=== PATIENT | male | born 1990 | race Caucasian/White ===

== ENCOUNTER 2018-12-28 16:51 | Emergency (ER) | payer OTHER ==
[~2018-12-28] VITALS: Ht 175.3 cm; Wt 81.7 kg
[2018-12-28] MEDS ORDERED: NOHOMEMEDICATIONS (17:19)
[2018-12-28 18:15] LABS: ABSOLUTE EOSINOPHILS 0.1 thou/uL (0.0-0.7); ABSOLUTE LYMPHOCYTES 1.2 thou/uL (0.8-5.3); ABSOLUTE MONOCYTES 0.9 thou/uL (0.0-1.2); ABSOLUTE NEUTROPHILS 10.3 thou/uL (1.6-8.1); BASOPHILS 0.3 %; EOSINOPHILS 0.8 %; HEMATOCRIT 50.3 % (42.0-52.0); HEMOGLOBIN 17.2 gm/dL (14.0-18.0); LYMPHOCYTES 9.9 %; MCH 29.7 pg (26.0-34.0); MCHC 34.3 g/dL (28.0-37.0); MCV 86.5 fL (80.0-100.0); MONOCYTES 6.9 %; MPV 9.1 fl. (7.2-11.1); NUCLEATED RBCS 0 /100WBC; PLATELET COUNT* 195 thou/uL (150-400); POLYS 82.1 %; RBC 5.81 mil/uL (4.50-6.00); RDW-CV 12.7 % (10.5-14.5); WBC 12.6 thou/uL (4.0-11.0)
[2018-12-28 18:16] LABS: URINE BILIRUBIN NEGATIVE (Negative); URINE BLOOD NEGATIVE (Negative); URINE CLARITY CLEAR; URINE COLOR YELLOW; URINE GLUCOSE-RANDOM NEGATIVE (Negative); URINE KETONES 1+ (Negative); URINE LEUKOCYTES-REFLEX NEGATIVE (Negative); URINE NITRITE-REFLEX NEGATIVE (Negative); URINE PROTEIN NEGATIVE (Negative); URINE SPECIFIC GRAVITY 1.015 (1.005-1.030)
[2018-12-28 18:23] LABS: CALCIUM 9.6 mg/dL (8.5-10.1); CREATININE 1.1 mg/dL (0.6-1.3); POTASSIUM 3.7 mmol/L (3.5-5.1)
[2018-12-28 18:23] LABS: AMP/METHAMP Negative (Negative); BARBITURATES Negative (Negative); BENZODIAZEPINES Negative (Negative); COCAINE Negative (Negative); METHADONE Negative (Negative); OPIATES Negative (Negative); PCP Negative (Negative); THC Negative (Negative)
[2018-12-28 18:27] LABS: TOTAL BILIRUBIN 1.3 mg/dL (<0.1-1.0); TOTAL PROTEIN 7.5 g/dL (6.4-8.2)
[2018-12-28] MEDS ORDERED: ACETAMINOPHEN-1 EAC1 PO (19:30)
[2018-12-28] MEDS ORDERED: NAPROSYN500 MG PO (19:31)
[2018-12-28] MEDS ORDERED: PROAIR HFA8.5 GM INH (19:38)
[2018-12-28] MEDS ORDERED: MEDROLDOSEPACK PO (19:38)
[2018-12-28 19:44] VITALS: BP 146/96
--- NOTE | 2018-12-29 17:02 | EKG ---
[place] [address] ELECTROCARDIOGRAM REPORT Name: ARACELI VELA Room: 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
== END 2018-12-28 19:45 | disposition home or self-care (01) ==
LOC: M.ERS 16:51
PROVIDERS: Physician Assistant
DX: R07.89 Other chest pain (principal); R06.00 Dyspnea, unspecified; R16.1 Splenomegaly, not elsewhere classified

== ENCOUNTER 2018-12-30 16:33 | Emergency (ER) | payer OTHER ==
[~2018-12-30] VITALS: Ht 177.8 cm; Wt 101.2 kg
[~2018-12-30 16:33] MED LIST: ACETAMINOPHEN-1 EAC1 PO; MEDROLDOSEPACK PO; NAPROSYN500 MG PO; NOHOMEMEDICATIONS; PROAIR HFA8.5 GM INH
[2018-12-30 17:11] LABS: ABSOLUTE LYMPHOCYTES 0.9 thou/uL (0.8-5.3); ABSOLUTE MONOCYTES 0.7 thou/uL (0.0-1.2); ABSOLUTE NEUTROPHILS 9.5 thou/uL (1.6-8.1); BASOPHILS 0.4 %; EOSINOPHILS 0.3 %; HEMATOCRIT 48.8 % (42.0-52.0); HEMOGLOBIN 16.9 gm/dL (14.0-18.0); LYMPHOCYTES 8.1 %; MCH 29.8 pg (26.0-34.0); MCHC 34.7 g/dL (28.0-37.0); MCV 85.7 fL (80.0-100.0); MONOCYTES 6.7 %; MPV 8.8 fl. (7.2-11.1); NUCLEATED RBCS 0 /100WBC; PLATELET COUNT* 193 thou/uL (150-400); POLYS 84.5 %; RBC 5.69 mil/uL (4.50-6.00); RDW-CV 13.1 % (10.5-14.5); WBC 11.2 thou/uL (4.0-11.0)
[2018-12-30 17:21] LABS: ANION GAP 15 mmol/L (7-16); BUN 18 mg/dL (7-18); CALCIUM 9.3 mg/dL (8.5-10.1); CHLORIDE 101 mmol/L (98-107); CO2 22 mmol/L (21-32); GLUCOSE 127 mg/dL (70-99); POTASSIUM 3.7 mmol/L (3.5-5.1); SODIUM 138 mmol/L (136-145)
[2018-12-30 17:31] LABS: ALBUMIN 4.4 g/dL (3.4-5.0); ALKALINE PHOSPHATASE 86 U/L (46-116); LIPASE 40 U/L (73-393); NT-PRO BRAIN NAT PEPTIDE 224 pg/mL (<300); SGOT 12 U/L (15-37); SGPT 26 U/L (30-65); TOTAL BILIRUBIN 1.6 mg/dL (<0.1-1.0); TOTAL PROTEIN 7.5 g/dL (6.4-8.2); TROPONIN-I LEVEL <0.06 ng/mL (<0.06)
[2018-12-30 18:15] LABS: URINE BLOOD NEGATIVE (Negative); URINE CLARITY CLEAR; URINE COLOR YELLOW; URINE GLUCOSE-RANDOM NEGATIVE (Negative); URINE LEUKOCYTES-REFLEX NEGATIVE (Negative); URINE NITRITE-REFLEX NEGATIVE (Negative); URINE PROTEIN 1+ (Negative); URINE SPECIFIC GRAVITY 1.015 (1.005-1.030)
[2018-12-30 18:22] LABS: ICTOTEST (BILI CONFIRMATORY) Negative (Negative); URINE BILIRUBIN 1+ (Negative); URINE KETONES 3+ (Negative)
[2018-12-30] MEDS ORDERED: HYDROXYZINE HCL25 M2 PO (18:33)
[2018-12-30 18:52] VITALS: BP 150/102
--- NOTE | 2018-12-31 12:34 | EKG ---
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
== END 2018-12-30 18:52 | disposition home or self-care (01) ==
LOC: M.ERS 16:33
PROVIDERS: Nurse Practitioner Family
DX: F41.9 Anxiety disorder, unspecified (principal); R06.00 Dyspnea, unspecified; Z87.19 Personal history of other diseases of the digestive system

== ENCOUNTER 2019-05-20 20:51 | Emergency (ER) | payer OTHER ==
[~2019-05-20] VITALS: Ht 177.8 cm; Wt 95.3 kg
[~2019-05-20 20:51] MED LIST changes: +HYDROXYZINE HCL25 M2 PO
[2019-05-20 21:02] VITALS: BP 143/92
[2019-05-21] MEDS ORDERED: CENTANY30 GM TOP (15:08)
[2019-05-21] MEDS ORDERED: DOXYCYCLINE 10100 MG PO (15:08)
== END 2019-05-20 21:36 | disposition home or self-care (01) ==
LOC: M.ERS 20:51
DX: B34.9 Viral infection, unspecified (principal); R21 Rash and other nonspecific skin eruption; Z88.0 Allergy status to penicillin

== ENCOUNTER 2019-05-21 14:30 | Emergency (ER) | payer OTHER ==
[~2019-05-21] VITALS: Ht 177.8 cm; Wt 95.3 kg
[2019-05-21] MEDS ORDERED: CENTANY30 GM TOP (15:08)
[2019-05-21] MEDS ORDERED: DOXYCYCLINE 10100 MG PO (15:08)
[2019-05-21 15:21] VITALS: BP 137/93
[2019-05-22] MEDS ORDERED: DOXYCYCLINE 10100 MG PO (18:27)
== END 2019-05-21 15:23 | disposition home or self-care (01) ==
LOC: M.ERS 14:30
DX: R21 Rash and other nonspecific skin eruption (principal); Z88.0 Allergy status to penicillin

== ENCOUNTER 2019-05-22 17:04 | Emergency (ER) | payer OTHER ==
[~2019-05-22] VITALS: Ht 177.8 cm; Wt 93.4 kg
[~2019-05-22 17:04] MED LIST changes: +CENTANY30 GM TOP; +DOXYCYCLINE 10100 MG PO
[2019-05-22] MEDS ORDERED: DOXYCYCLINE 10100 MG PO (18:27)
[2019-05-22 19:14] LABS: URINE BILIRUBIN NEGATIVE (Negative); URINE BLOOD NEGATIVE (Negative); URINE CLARITY CLEAR; URINE COLOR YELLOW; URINE GLUCOSE-RANDOM NEGATIVE (Negative); URINE KETONES NEGATIVE (Negative); URINE LEUKOCYTES-REFLEX NEGATIVE (Negative); URINE NITRITE-REFLEX NEGATIVE (Negative); URINE PROTEIN NEGATIVE (Negative); URINE SPECIFIC GRAVITY >= 1.030 (1.005-1.030); URINE UROBILINOGEN 0.2 E.U./dl (0.2-1.0)
[2019-05-22 19:19] VITALS: BP 132/78
== END 2019-05-22 19:19 | disposition home or self-care (01) ==
LOC: M.ERS 17:04
PROVIDERS: Nurse Practitioner Family
DX: R21 Rash and other nonspecific skin eruption (principal); Z88.0 Allergy status to penicillin

== ENCOUNTER 2021-03-20 08:25 | Emergency (ER) | payer OTHER ==
[~2021-03-20] VITALS: Ht 177.8 cm; Wt 109.8 kg
[2021-03-20 08:31] VITALS: BP 134/95
[2021-03-20] MEDS ORDERED: IBUPROFEN 800800 MG PO (10:14)
[2021-03-20] MEDS ORDERED: FLEXERIL PO (10:14)
== END 2021-03-20 10:22 | disposition home or self-care (01) ==
LOC: M.ERS 08:25
DX: M25.552 Pain in left hip (principal); Z88.0 Allergy status to penicillin